=== PATIENT | female | born 1985 | race Caucasian/White ===

== ENCOUNTER 2017-11-05 20:56 | Emergency (ER) | payer SELFPAY ==
--- NOTE | 2017-11-05 23:01 | ED Physician Chart ---
ED Chief Complaint/HPI - Patient Information Date Seen:: 11/05/17 Time Seen:: 21:25 Chief Complaint:: Neck pain. History of Present Illness:: Pt came to the ER when it was very busy and full. Pt was evaluated immediately when she was placed in a bed. Pt was brought in by ambulance because she has had neck pain since about 7:30 pm today. Pt turned her neck rigorously during dancing. No UE weakness or numbness. No LOC or fall. Pt denies any ethanol or illicit drug use. Pt had transient N/V with vomitus consists of gastric content. No hematemesis. Allergies:: Allergies Allergy/AdvReac Type Severity Reaction Status Date / Time Penicillins Allergy Verified 11/05/17 21:00 Vitals:: Vital Signs - 8 hr 11/05/17 21:00 Temp 97.1 F HR 86 RR 20 BP 128/72 O2 Sat % 98 Historian:: Patient Family MD/PCP:: unknown LMP:: 10/15/17 Review:: Nurse's Note Reviewed ED Review of Systems - Review of Systems General/Constitutional: No fever, No weight loss, No weakness, No edema, No loss of appetite Skin: No rash, No bruising Head: No headache, No light-headedness Eyes: No loss of vision, No pain, No diplopia ENT: No earache, No nasal drainage, No sore throat Neck: Neck pain, No swelling, No thyromegaly, No stiffness, No mass noted Cardio Vascular: No chest pain, No palpitations, No edema Pulmonary: No cough, No wheezing GI: Nausea, Vomiting (transient), No diarrhea, No pain G/U: No dysuria, No frequency, No hematuria Endocrine: No polyuria, No polydipsia Psychiatric: No prior psych history Hematopoietic: No bruising, No lymphadenopathy Allergic/Immuno: No urticaria, No angioedema Neurological: No syncope, No focal symptoms, No weakness, No paresthesia, No headache, No dizziness, No confusion ED Past Medical History - Past Medical History Past Medical History: No significant medical hx Social History: Non Smoker, No Alcohol, No Drug Use, , Employed, Other ( lives with her hu) 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 Surgical History: other (bilateral breast augmentation ) Psychiatricy History: None Medication: None Family Medical History - Family Member Mother History Unknown: Yes ED Physical Exam - Physical Examination General/Constitutional: Awake, Well-developed, well-nourished, Alert, No distress, GCS 15, Non-toxic appearing, Ambulatory Other Gen/Cons comments:: Breathes comfortably, speaks clearly, and ambulates without difficulty. Head: Atraumatic Eyes: Lids, conjuctiva normal, PERRL, EOMI Skin: No rash, No ecchymosis, Well hydrated, No lymphadenopathy ENMT: External ears, nose nl, Nasal exam nl, Oropharynx nl Neck: No JVD, No nuchal rigidity, No mass, No stridor Other Neck comments:: Supple with tenderness at mid upper posterior aspect. No open wound, erythema, or swelling. Respiratory: Nl effort/Exclusion, Clear to Auscultation, No Wheeze/Rhonchi/Rales Cardio Vascular: RRR, No murmur, gallop, rubs GI: No tenderness/rebounding/guarding, No organomegaly, No hernia, Normal BS's, Nondistended, No McBurney tenderness Other GI comments:: Abdomen is soft. 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 ED Labs/Radiology/EKG Results - Lab Results Results: Laboratory Tests 11/05/17 23:10 POC Ur Test Negative - Radiology Results Results: C-spine X-ray: Based on my interpretation, mild degenerative changes. No acute fx or subluxation. Official report is pending. ED Septic Shock - . Is Septic Shock (SBP<90, OR Lactate>4 mmol\L) present?: No - <6hrs of presentation: Vital Signs: Vital Signs - 8 hr 11/05/17 21:00 Temp 97.1 F HR 86 RR 20 BP 128/72 O2 Sat % 98 ED Reassessment (Disposition) - Reassessment Reassessment:: 0005 Pt is comfortable. No neck pain. C-spine X-ray just became available. Radiological findings have been reviewed with pt. Pt requests to go home now and does not want further observation/management in hospital. Aftercare instructions have been given. Her friend Lise will drive pt home. Reassessment Condition:: Improved - Diagnosis Diagnosis:: Cervical sprain. Stable and improved. - Aftercare/Follow up Instructions Aftercare/Follow-Up Instructions:: Refer to Discharge Instructions Notes:: Wear C-collar as directed. Sprain care instructions given. Avoid neck bending activities. May take Motrin 200 mg tab 3 tabs po q8h prn pain. F/U with Dr. Cox or PCP of pt's choice in 1-2 days for recheck. Return to ER immediately if condition worsens or if any further questions/problems. Medication Prescribed:: None - Patient Disposition Discharge/Transfer:: Home Time:: 00:05 Condition at Disposition:: Stable, Improved ED Discharge Plan - Patient Disposition Admit/Discharge/Transfer: PT DISCHARGED HOME Instructions: Cervical Strain and Sprain with [facility] Additional Instructions: FOLLOW UP WITH YOUR REGULAR DOCTOR.
--- NOTE | 2017-11-06 09:03 | Diagnostic Imaging Report ---
EXAM: Cervical spine HISTORY: Pain COMPARISON: None FINDINGS: Multiple views of cervical spine reviewed. The study demonstrates vertebral bodies of normal height with preserved intervertebral disc spaces. There is no evidence of fracture dislocation of subluxation. There is no evidence of spondylolysis or spondylolisthesis. No prevertebral soft tissue swelling is noted the pedicles are intact. IMPRESSION: Normal examination of cervical spine.
== END 2017-11-06 00:10 | disposition home or self-care (01) ==
LOC: ER 20:56
DX: S16.1XXA Strain of muscle, fascia and tendon at neck level, initial encounter (principal); Z88.0 Allergy status to penicillin; X58.XXXA Exposure to other specified factors, initial encounter; Y93.89 Activity, other specified; Y92.89 Other specified places as the place of occurrence of the external cause; Y99.8 Other external cause status
CPT/HCPCS: 72040-TC; 81025-TC; Z7502